=== PATIENT | female | born 1945 | race African-American/Black ===

== ENCOUNTER 2023-09-30 05:53 | Emergency (ER) | payer MEDICARE, BC ==
[2023-09-30] MEDS ORDERED: Morphine 4 MG/ML VIAL ONE (07:18)
[2023-09-30] MEDS ORDERED: Ketorolac Tromethamine 30 MG (1 mL) VIAL ONE (08:07)
== END 2023-09-30 09:37 | disposition home or self-care (01) ==
LOC: ERS 05:53
DX: M25.562 Pain in left knee (principal)
CPT/HCPCS: 96372; J1885; J2270

== ENCOUNTER 2024-02-13 16:13 | Outpatient (CLI) | payer MEDICARE, BC | END 2024-02-13 16:14 | disposition home or self-care (01) | LOC: BICRAD 16:13 | PROVIDERS: ATTEND Student in an Organized Health Care Education/Training Program | DX: M25.512 Pain in left shoulder (principal); M25.511 Pain in right shoulder; M25.812 Other specified joint disorders, left shoulder ==

== ENCOUNTER 2025-03-27 19:56 | Emergency (ER) | payer MEDICARE, BC | END 2025-03-27 20:48 | disposition home or self-care (01) | LOC: ERS 19:56 | DX: S91.051A Open bite, right ankle, initial encounter (principal); E78.00 Pure hypercholesterolemia, unspecified; Z79.899 Other long term (current) drug therapy; Z79.82 Long term (current) use of aspirin; W59.11XA Bitten by nonvenomous snake, initial encounter; Y93.01 Activity, walking, marching and hiking; Y92.015 Private garage of single-family (private) house as the place of occurrence of the external cause | CPT/HCPCS: 99283 ==

== ENCOUNTER 2025-05-13 19:13 | Inpatient (IN) | payer MEDICARE, BC ==
[~2025-05-13 19:13] MED LIST: Iopamidol-370 76% 500 ML MDV (1 ML CHARGE) ONE
[2025-05-13 20:55] LABS: #Basophils 0.03 10x3/uL (0.0-0.2); #Eosinophils 0.13 10x3/uL (0.0-0.7); #Monocytes 0.74 10x3/uL (0.11-0.59); #Neutrophils 4.25 10x3/uL (1.40-6.50); %Basophils 0.4 % (0.0-1.0); %Eosinophils 1.8 % (0.0-10.0); %Lymphocytes 27.0 % (21.0-51.0); %Monocytes 10.5 % (0.0-10.0); %Neutrophils 60.0 % (42.0-75.0); Hematocrit 45.3 % (36.0-47.0); Hemoglobin 14.3 g/dL (12.0-16.0); Mean Corpuscular Hemoglobin 29.0 pg (27.0-31.0); Mean Corpuscular Volume 91.9 fL (78.0-98.0); Platelet Count 222 10x3/uL (130-400); Red Blood Cell (RBC) Count 4.93 mill/uL (4.20-5.40); White Blood Cell (WBC) Count 7.08 10x3/uL (4.8-10.8)
[2025-05-13 21:17] LABS: ALT (SGPT) 11 U/L (Less than 34); AST (SGOT) 23 U/L (11-34); Albumin 4.0 g/dL (3.1-4.5); Alkaline Phosphatase 70 U/L (40-110); Anion Gap 14 mmol/L (10-20); BUN (Urea Nitrogen) 13 mg/dL (9.8-20.1); Bilirubin, Total 0.2 mg/dL (0.3-1.2); Calc. Creatinine Clearance 0 mL/min (70-130); Calcium 9.5 mg/dL (7.8-10.44); Carbon Dioxide 25 mmol/L (23-31); Chloride 108 mmol/L (98-107); Globulin 3.7 g/dL (2.4-3.5); Glucose 101 mg/dL (83-110); Potassium 4.3 mmol/L (3.5-5.1); Sodium 143 mmol/L (136-145)
[2025-05-13] MEDS ORDERED: Aspirin Chewable 81 MG TAB ONE (22:14)
[2025-05-13] MEDS ORDERED: Ondansetron PF 4 MG/2 ML Vial IVP PRN (22:44)
[2025-05-13] MEDS ORDERED: Melatonin 3 MG TAB PO PRN (22:44)
[2025-05-13 23:35] LABS: Cardiac Risk 2.6 (Less than 4.5); Cholesterol 210.0 mg/dl (< 200 Desired); HDL Cholesterol 80.0 mg/dL (>60 Neg Risk); LDL Cholesterol, Calculated 115.0 mg/dL; Triglycerides 77.0 mg/dL (Less than 150)
[2025-05-13 23:53] VITALS: BMI 22.0
[2025-05-14 04:18] LABS: #Basophils 0.03 10x3/uL (0.0-0.2); #Eosinophils 0.12 10x3/uL (0.0-0.7); #Monocytes 0.74 10x3/uL (0.11-0.59); #Neutrophils 4.51 10x3/uL (1.40-6.50); %Basophils 0.4 % (0.0-1.0); %Eosinophils 1.7 % (0.0-10.0); %Lymphocytes 24.5 % (21.0-51.0); %Monocytes 10.3 % (0.0-10.0); %Neutrophils 62.8 % (42.0-75.0); Hematocrit 42.3 % (36.0-47.0); Hemoglobin 13.3 g/dL (12.0-16.0); Mean Corpuscular Hemoglobin 29.1 pg (27.0-31.0); Mean Corpuscular Volume 92.6 fL (78.0-98.0); Platelet Count 209 10x3/uL (130-400); Red Blood Cell (RBC) Count 4.57 mill/uL (4.20-5.40); White Blood Cell (WBC) Count 7.18 10x3/uL (4.8-10.8)
[2025-05-14 04:36] LABS: ALT (SGPT) 10 U/L (Less than 34); AST (SGOT) 17 U/L (11-34); Albumin 3.3 g/dL (3.1-4.5); Alkaline Phosphatase 62 U/L (40-110); Anion Gap 16 mmol/L (10-20); BUN (Urea Nitrogen) 12 mg/dL (9.8-20.1); Bilirubin, Total 0.2 mg/dL (0.3-1.2); Calc. Creatinine Clearance 73 mL/min (70-130); Calcium 8.7 mg/dL (7.8-10.44); Carbon Dioxide 19 mmol/L (23-31); Chloride 110 mmol/L (98-107); Globulin 3.2 g/dL (2.4-3.5); Glucose 96 mg/dL (83-110); Potassium 3.8 mmol/L (3.5-5.1); Sodium 141 mmol/L (136-145)
[2025-05-14] MEDS: Enoxaparin 40 MG (0.4 mL) SYRINGE SC SCH (08:55)
[2025-05-14] MEDS: Calcium Carbonate 500 MG ChewTAB PO PRN (20:22)
[2025-05-15] MEDS ORDERED: CATH FS PRN (00:01)
[2025-05-15] MEDS: Acetaminophen 325 MG TAB PO PRN (05:07)
[2025-05-15 07:15] LABS: Anion Gap 13 mmol/L (10-20); BUN (Urea Nitrogen) 14 mg/dL (9.8-20.1); Calc. Creatinine Clearance 49 mL/min (70-130); Calcium 9.4 mg/dL (7.8-10.44); Carbon Dioxide 19 mmol/L (23-31); Chloride 111 mmol/L (98-107); Glucose 97 mg/dL (83-110); Potassium 4.2 mmol/L (3.5-5.1); Sodium 139 mmol/L (136-145)
[2025-05-15] MEDS ORDERED: Nitroglycerin 50 MG/250 ML BOT 250 ML ONE (07:53)
[2025-05-15] MEDS ORDERED: Lidocaine 1% (PF) 30 ML VIAL ONE (07:53)
[2025-05-15] MEDS ORDERED: PHENYLEPHRINE-NS 100 MCG/ML 10 ML SYRINGE ONE (07:53)
[2025-05-15] MEDS ORDERED: Heparin 10,000 UNITS/ 10 ML VIAL ONE (07:53)
[2025-05-15 07:59] LABS: INR-International Normal Ratio 1.0; PTT 33.2 sec (22.9-36.1); Prothrombin Time 13.2 sec (12.0-14.7)
[2025-05-15] MEDS ORDERED: Adenosine 6 mg (2 mL) VIAL ONE (08:52)
[2025-05-15] MEDS ORDERED: TICAGRELOR 90 MG TABLET ONE (10:23)
[2025-05-15] MEDS ORDERED: Iopamidol 370 76% 100 ML VIAL ONE (12:40)
[2025-05-15] MEDS: TICAGRELOR 90 MG TABLET PO SCH (20:43)
[2025-05-16 05:20] LABS: #Basophils Less than 0.03 10x3/uL (0.0-0.2); #Eosinophils 0.15 10x3/uL (0.0-0.7); #Monocytes 0.74 10x3/uL (0.11-0.59); #Neutrophils 5.60 10x3/uL (1.40-6.50); %Basophils 0.3 % (0.0-1.0); %Eosinophils 1.9 % (0.0-10.0); %Lymphocytes 15.1 % (21.0-51.0); %Monocytes 9.6 % (0.0-10.0); %Neutrophils 72.7 % (42.0-75.0); Hematocrit 42.0 % (36.0-47.0); Hemoglobin 13.1 g/dL (12.0-16.0); Mean Corpuscular Hemoglobin 29.1 pg (27.0-31.0); Mean Corpuscular Volume 93.3 fL (78.0-98.0); Platelet Count 213 10x3/uL (130-400); Red Blood Cell (RBC) Count 4.50 mill/uL (4.20-5.40); White Blood Cell (WBC) Count 7.70 10x3/uL (4.8-10.8)
[2025-05-16 05:42] LABS: ALT (SGPT) 10 U/L (Less than 34); AST (SGOT) 21 U/L (11-34); Albumin 3.0 g/dL (3.1-4.5); Alkaline Phosphatase 55 U/L (40-110); Anion Gap 14 mmol/L (10-20); BUN (Urea Nitrogen) 13 mg/dL (9.8-20.1); Bilirubin, Total 0.4 mg/dL (0.3-1.2); Calc. Creatinine Clearance 68 mL/min (70-130); Calcium 8.8 mg/dL (7.8-10.44); Carbon Dioxide 18 mmol/L (23-31); Chloride 112 mmol/L (98-107); Globulin 3.0 g/dL (2.4-3.5); Glucose 90 mg/dL (83-110); Potassium 4.0 mmol/L (3.5-5.1); Sodium 140 mmol/L (136-145)
[2025-05-16] MEDS: Aspirin 81 mg Enteric Coated Tablet PO SCH (09:11)
[2025-05-16 11:48] VITALS: BP 114/61; TEMP 98.1
[2025-05-17] MEDS ORDERED: Ezetimibe 10 MG TAB PO SCH (09:00)
== END 2025-05-16 14:44 | disposition home or self-care (01) | DRG 322 ==
LOC: ERS 19:13 → OBS 22:44 → OBSVTOIN 05-14 13:14
PROVIDERS: ADMIT Internal Medicine; ATTEND Hospitalist
PROC: 02703DZ Dilation of Coronary Artery, One Artery with Intraluminal Device, Percutaneous Approach (ICD-10-PCS; principal; 2025-05-14)
PROC: 4A023N7 Measurement of Cardiac Sampling and Pressure, Left Heart, Percutaneous Approach (ICD-10-PCS; 2025-05-14)
DX: I20.0 Unstable angina (principal); R07.9 Chest pain, unspecified; N64.1 Fat necrosis of breast; E78.5 Hyperlipidemia, unspecified; K21.9 Gastro-esophageal reflux disease without esophagitis; Z90.49 Acquired absence of other specified parts of digestive tract; Z98.890 Other specified postprocedural states; Z90.710 Acquired absence of both cervix and uterus; Z85.3 Personal history of malignant neoplasm of breast; Z79.82 Long term (current) use of aspirin; Z79.02 Long term (current) use of antithrombotics/antiplatelets; Z79.899 Other long term (current) drug therapy
CPT/HCPCS: 36415; 71045; 71275; 74177; 78452; 80048; 80053; 80061; 83036; 83880; 84443; 84484; 85025; 85347; 85610; 85730; 92928; 93005; 93010; 93017; 93306; 93458; 93798; 94760; 99152; 99153; A9502; C1725; C1769; C1874; C1887; C1894; C1984; C9600; J0153; J0461; J1644; J1650; J2250; J2785; J7030; Q9967

== ENCOUNTER 2025-07-05 21:08 | Emergency (ER) | payer MEDICARE, BC | END 2025-07-05 23:40 | disposition home or self-care (01) | LOC: ERS 21:08 | DX: I83.812 Varicose veins of left lower extremity with pain (principal); I25.10 Atherosclerotic heart disease of native coronary artery without angina pectoris; I10 Essential (primary) hypertension; E78.00 Pure hypercholesterolemia, unspecified; Z86.718 Personal history of other venous thrombosis and embolism; Z79.82 Long term (current) use of aspirin; Z79.02 Long term (current) use of antithrombotics/antiplatelets; Z79.899 Other long term (current) drug therapy ==